=== PATIENT | female | born 1970 | race Caucasian/White ===

== ENCOUNTER → 2016-06-01 | Outpatient (CLI) | payer BC ==
[2016-06-01 13:19] LABS: CH 33.7; HCT 41.4 % (34.0-46.0); HDW 2.17; HGB 13.2 gm/dL (11.4-16.0); MCH 32.8 pg (25.0-35.0); MCHC 31.9 g/dL (31.0-37.0); MCV 102.8 fL (80.0-100.0); Macrocytosis Slight; Mean Platelet Volume 7.4; RBC 4.03 m/uL (3.80-5.40); WBC 9.3 k/uL (3.8-10.6)
[2016-06-01 13:31] LABS: Potassium 4.4 mmol/L (3.5-5.1)
== END | disposition home or self-care (01) ==
LOC: LABWHC1 12:35
PROVIDERS: ATTEND Orthopaedic Surgery
DX: Z01.812 Encounter for preprocedural laboratory examination (principal); M75.41 Impingement syndrome of right shoulder
CPT/HCPCS: 80051; 85027

== ENCOUNTER 2016-06-07 07:52 | Day surgery (SDC) | payer BC ==
[2016-06-02 16:55] VITALS: BMI 19.1
--- NOTE | 2016-06-06 15:07 | HP ---
DATE OF ADMISSION: 06/07/2016 Magnolia Segura is a 46-year-old patient seen with progressive right shoulder pain. After having treatment options discussed, she elected to proceed with right shoulder arthroscopy. Consent was obtained. Past medical history is noncontributory. Past surgical history is breast augmentation, tubal ligation, cholecystectomy. Daily medications are: 1. Ambien. 2. Aleve. 3. Gwhi-dxb-eslgequ vitamins. ALLERGIES: None reported. SOCIAL HISTORY: Currently smokes cigarettes. Physical evaluation of right shoulder: Flexion 150 degrees, abduction 140 degrees, external rotation is 40 degrees with some weakness. There is tenderness along the anterolateral acromion and rotator cuff insertion. Impingement positive at 90 degrees. Distal neurovascular exam is intact. Radiographs of the right shoulder revealed a type 2 anterior acromion, cystic changes of the tuberosity. An MRI of her shoulder revealed rotator cuff tendon tear. IMPRESSION: Right shoulder impingement with rotator cuff tendon tear. PLAN: Right shoulder arthroscopy with subacromial decompression, probable arthroscopic rotator cuff repair, and debridement.
[~2016-06-07 07:52] MED LIST: DEXAMETHASONE SOD PHOSPHATE 10 MG/ML 1 ML VIAL IV ONE; HYDROmorphone 1 MG/ML 1 ML SYRINGE IVP PRN; LACTATED RINGERS 1,000 ML IV SCH; MIDAZOLAM 2 MG/2 ML VIAL IV PRN; ONDANSETRON 4 MG/2 ML VIAL IVP ONE; ceFAZolin 1,000 MG in DEXTROSE/WATER 1 50ML.BAG IVPB ONE
[2016-06-07] MEDS ORDERED: LIDOCAINE 1% 20 ML VIAL (10MG/ML) FOR IV START INTRADERMA ONE (08:30)
[2016-06-07] MEDS ORDERED: fentaNYL (PF) 50 MCG/ML 2 ML AMP IV ONE (09:15)
--- NOTE | 2016-06-07 09:33 | P.ONQ ---
Anesthesiology Proc Note - PNB - Peripheral Nerve Block Performed Right Interscalene Single Indication: Acute Post-Operative Pain, Analgesia Specifically requested for management of pain by DrBrittany: Moises Perry Sedation Type: Sedate with meaningful contact maintained Preparation: Sterile Prep Position: Supine Catheter: None Needle Types: Other (see comment) (stimuplex) Needle Size: 50mm (2") Needle Gauge: Other (see comment) (22) Technique: Ultrasound Injectate: Other (see comment) (10 cc 0.5%Rop, 10cc 2% Lido) Adjunct: Epinephrine (see comment for dilution ratio) (1:200,000) Blood Aspirated: No Pain Paresthesia on Injection Noted: No Resistance on Injection: Normal Events: Uneventful and Well Tolerated
[2016-06-07] MEDS ORDERED: ROPIVACAINE 5 MG/ML 30 ML VIAL ONE (09:39)
[2016-06-07] MEDS ORDERED: PROPOFOL 10 MG/ML 20 ML VIAL IV ONE (09:39)
[2016-06-07] MEDS ORDERED: SUCCINYLCHOLINE CHLORIDE 100 MG/5 ML SYR IV ONE (09:39)
[2016-06-07] MEDS ORDERED: LIDOCAINE 2%-EPI 1:100,000 20 ML VIAL ONE (09:39)
[2016-06-07] MEDS ORDERED: LIDOCAINE 1% INJ 10MG/ML (20 ML MDV) ONE (09:39)
[2016-06-07] MEDS ORDERED: fentaNYL (PF) 50 MCG/ML 2 ML AMP ONE (09:39)
[2016-06-07] MEDS ORDERED: MIDAZOLAM 2 MG/2 ML VIAL ONE (09:39)
[2016-06-07] MEDS ORDERED: LACTATED RINGERS 1,000 ML IV ONE (10:13)
[2016-06-07 11:13] VITALS: TEMP 97
--- NOTE | 2016-06-07 11:18 | P.OP ---
Date of Procedure: 06/07/16 Preoperative Diagnosis: Right shoulder impingement Postoperative Diagnosis: 1. Right shoulder rotator cuff tear 2. Right shoulder impingement 3. Right shoulder partial biceps tendon tear Procedure(s) Performed: 1. Right shoulder arthroscopic rotator cuff repair 2. Right shoulder arthroscopic subacromial decompression 3. Right shoulder arthroscopic biceps tenotomy Implants: 1-valeris peek anchor Anesthesia: GETA, regional (Interscalene block) Surgeon: Moises Perry Director Of Recruiting #1: Robin Richter Estimated Blood Loss (ml): 10 Pathology: none sent Condition: stable Disposition: PACU Indications for Procedure: 46-year-old patient seen with progressive right shoulder pain. After having treatment options discussed, she elected to proceed with right shoulder arthroscopy. Operative Findings: See description of procedure Description of Procedure: Patient underwent a shoulder block by department of anesthesia. The patient was then taken to the operative suite. The patient underwent a general anesthetic by the department of anesthesia. The patient was placed into a lateral position and secured. There was appropriate padding of the bony prominence. Right shoulder was then prepped and draped in normal sterile orthopedic fashion. We placed the extremity in 10 pounds of longitudinal traction. A posterior incision was now made for a posterior working portal site. The trocar and cannula were inserted into the glenohumeral joint. Arthroscopy was initiated. Spinal needle was now inserted anteriorly, to ascertain the anterior working portal site. An incision was now made in that area, a trocar was inserted followed by a probe. There was some partial tearing long head biceps tendon with hyperemia. Glenohumeral joint was otherwise unremarkable. The labrum was intact. There was no chondromalacia. There were no loose bodies. An arthroscopic biceps tenotomy was performed. The labrum superiorly was probed and found to be stable. The instruments were now removed from glenohumeral joint. Utilizing the posterior working portal site, the trocar and cannula were inserted into the subacromial space. Arthroscopy initiated. I made an incision 2 fingerbreadths lateral to the acromion. I introduced my trocar followed by my ArthroCare ablator. I now began ablating thick subacromial bursal tissue, which exposed the undersurface of the anterior acromion. This was diminished subacromial space. There was a very prominent anterior acromion. A motorized bur was introduced and a subacromial decompression was performed. I also excised some osteophytes off the inferior aspect of the distal clavicle. The acromioclavicular joint was visualized with mild arthritis. I did not think enough to warrant Anthony procedure. I turned my attention to the rotator cuff tendon. There was some partial tearing along the distal supraspinatus anteriorly. I debrided that down to stable tissue. There was a perforation. I now debrided that area getting down to stable rotator cuff tendon tissue. There was about a 1-1.5 cm defect. It was easily mobile over the footprint. I abraded the footprint with a motorized bur. I then passed 2 everted mattress sutures through good bites of rotator cuff tendon. I punched a hole lateral for repair. I introduced one 5.5 peek anchor compressing the tendon along the footprint very nicely. The residual suture limbs were clipped. The repair was probed and found to be stable. I injected 1 mL of Allogen into the footprint repair site. Instruments now removed from the portal sites. All portal sites were approximated with nylon suture. Sterile dressings were applied followed by a shoulder immobilizer. Art CHOWDHURY assisted with the procedure. The patient was awakened, transferred to a bed, and taken to recovery in stable condition.
[2016-06-07 13:08] VITALS: RESP 18
[2016-06-07 13:14] VITALS: BP 97/62; PULSE 75
== END 2016-06-07 14:06 | disposition home or self-care (01) ==
LOC: OR 07:52
PROVIDERS: ATTEND Orthopaedic Surgery
DX: M75.101 Unspecified rotator cuff tear or rupture of right shoulder, not specified as traumatic (principal); M75.41 Impingement syndrome of right shoulder; S46.111A Strain of muscle, fascia and tendon of long head of biceps, right arm, initial encounter; X58.XXXA Exposure to other specified factors, initial encounter; F17.210 Nicotine dependence, cigarettes, uncomplicated; M79.7 Fibromyalgia; Z79.82 Long term (current) use of aspirin; Z79.899 Other long term (current) drug therapy
CPT/HCPCS: 81025; 64415; 29826; 29827; C1713; C1765; J2250; J1100; J2405; J2001; J3010; J0690; J2795; J0330; J2704

== ENCOUNTER → 2016-07-21 | Outpatient (CLI) | payer BC ==
[2016-07-21 14:19] LABS: ALT 28 U/L (9-52); AST 25 U/L (14-36); Alkaline Phosphatase 64 U/L (38-126); Anion Gap 10 mmol/L; Blood Urea Nitrogen 9 mg/dL (7-17); C Reactive Protein <5.0 mg/L (<10.0); Carbon Dioxide 27 mmol/L (22-30); Chloride 103 mmol/L (98-107); Cholesterol 212 mg/dL (<200); Creatine Kinase 92 U/L (30-135); Glucose 102 mg/dL (74-99); HDL Cholesterol 77 mg/dL (40-60); Iron 89 ug/dL (37-170); Non-African American GFR(MDRD) >60 (>60 ml/min/1.73 sqM); Potassium 4.3 mmol/L (3.5-5.1); Sodium 140 mmol/L (137-145); Total Bilirubin 0.4 mg/dL (0.2-1.3); Total Protein 7.3 g/dL (6.3-8.2); Triglycerides 117 mg/dL (<150); Uric Acid 3.7 mg/dL (3.7-7.4)
[2016-07-21 14:26] LABS: % Iron Saturation 28.6 % (20-50); Total Iron Binding Capacity 311 ug/dL (265-497)
[2016-07-21 15:05] LABS: Vitamin B12 466 pg/mL (239-931)
[2016-07-24 07:41] LABS: ANA w/Reflex to Titer POSITIVE (NEGATIVE)
[2016-07-24 15:29] LABS: Mis test requested (Blood) CENTROMERE B AB
== END | disposition home or self-care (01) ==
LOC: LABWHC1 12:55
PROVIDERS: ATTEND Family Medicine
DX: M34.1 CR(E)ST syndrome (principal); F51.01 Primary insomnia; R53.82 Chronic fatigue, unspecified; Z13.220 Encounter for screening for lipoid disorders
CPT/HCPCS: 36415; 80053; 80061; 82306; 82550; 82607; 83540; 83550; 83970; 84439; 84443; 84550; 85652; 86038; 86039; 86140; 86225; 86256

== ENCOUNTER → 2016-11-27 | Outpatient (CLI) | payer BC ==
--- NOTE | 2016-11-27 19:37 | MR ---
EXAMINATION TYPE: MR cervical spine wo con DATE OF EXAM: 11/27/2016 COMPARISON: NONE HISTORY: Neck pain, headaches, numbness in both hands TECHNIQUE: Multiplanar, multisequence images of the cervical spine were acquired. C2-C3: No evidence for degenerative disc disease. No disc bulge/herniation or protrusion. No Canal stenosis. Foramina are patent bilaterally. C3-C4: Mild to moderate degenerative disc disease with mild uncovertebral joint hypertrophy. No canal stenosis or disc herniation. C4-C5: Mild to moderate degenerative disc disease with bilateral uncovertebral joint hypertrophy and mild bilateral foraminal encroachment. No disc herniation or canal stenosis. C5-C6: Moderate degenerative disc disease with bilateral uncovertebral joint hypertrophy. No canal st enosis or focal herniation mild bilateral foraminal encroachment greater on the left. Mild broad-base d disc bulging greater paracentrally to the left. C6-C7: Moderate degenerative disc disease with bilateral mild uncovertebral joint hypertrophy. No can al stenosis, disc herniation or foraminal encroachment. C7-T1: No evidence for degenerative disc disease. No disc bulge/herniation or protrusion. No Canal stenosis. Foramina are patent bilaterally. Cervical segments are intact. There is normal alignment. Cervical spinal cord is of normal signal. Craniovertebral junction relationships are within normal limits. IMPRESSION: Bilateral mild to moderate degenerative disc disease and uncovertebral joint hypertrophy result in mu ltilevel mild foraminal encroachment. No discrete herniation or canal stenosis at any of the visualiz ed levels. Disc bulging C5-C6 greater paracentrally to the left but no evidence of canal stenosis
== END | disposition home or self-care (01) ==
LOC: RADMRIMAIN 18:46
PROVIDERS: ATTEND Internal Medicine Rheumatology
DX: M50.11 Cervical disc disorder with radiculopathy, high cervical region (principal); M47.22 Other spondylosis with radiculopathy, cervical region
CPT/HCPCS: 72141

== ENCOUNTER → 2016-12-14 | Outpatient (CLI) | payer BC ==
--- NOTE | 2016-12-14 21:15 | MR ---
EXAMINATION TYPE: MR shoulder RT wo con DATE OF EXAM: 12/14/2016 COMPARISON: Prior MRI right shoulder March 28, 2016. Recent outside shoulder x-ray November 02, 2016. HISTORY: Rt shoulder pain per order. Persistent pain with difficulty raising overhead since surgery M arch 2016. TECHNIQUE: Multiplanar, multisequence imaging of the right shoulder is performed without contrast. FINDINGS: Rotator Cuff: Artifact from rotator cuff tendon repair surgery is present. There is significant incre ased signal along course of distal supraspinatus tendon with areas of focal tear is seen best on para sagittal images 8 and 9. No full-thickness retracted tear is identified. Infraspinatus tendon appears within normal limits. Subscapularis tendon is intact. Rotator cuff muscle bulk is preserved. Acromioclavicular Joint: Acromioclavicular joint is satisfactory. Distal acromion morphology is unrem arkable. Glenohumeral Joint: No significant spurring is present. There is persistent mild joint space loss. No significant effusion is seen. Labrum: The labrum has blunted morphology and increased signal suggestive of tear though is difficult to distinctly evaluate on nonarthrogram study. Biceps Tendon: The long head of biceps is in normal location within bicipital groove. There appears t o be increased signal intra-articular portion on axial image 18 confirmed on paracoronal image 6. The re is definitive change from prior MRI noted however. Bone marrow signal: No focal abnormal marrow signal is appreciated. Other: No additional significant abnormality is appreciated. IMPRESSION: 1. Interval rotator cuff surgery with moderate to severe tendinosis of distal supraspinatus tendon an d some partial tearing near humeral head attachment now identified. No full-thickness Full-thickness retracted tear is seen. 2. Superior labrum is now frayed with intermediate signal suggesting partial surgical resection or in terval developed tear. 3. New Intrasubstance tear intra-articular portion long head of biceps tendon.
== END | disposition home or self-care (01) ==
LOC: RADMRIMAIN 20:01
PROVIDERS: ATTEND Orthopaedic Surgery
DX: S46.011A Strain of muscle(s) and tendon(s) of the rotator cuff of right shoulder, initial encounter (principal); M75.81 Other shoulder lesions, right shoulder

== ENCOUNTER → 2017-06-26 | Outpatient (CLI) | payer BC ==
--- NOTE | 2017-06-26 23:12 | MR ---
EXAMINATION TYPE: MR lumbar spine wo con DATE OF EXAM: 06/26/2017 COMPARISON: None. HISTORY: Back pain with numbness and tingling x1 year per patient. Lumbago per order. TECHNIQUE: Multiplanar, multisequence imaging of the lumbar spine is performed without IV contrast. FINDINGS: Survey images show levoconvex scoliosis centered in the upper lumbar spine. Sagittal images of the lumbar spine show vertebral body heights and alignment to appear satisfactory. There is disc desiccation at L1-L2, L4-L5, and L5-S1 levels. There is mild disc space narrowing L1-L2 level. Small posterior disc herniations are seen L1-L2 and L4-L5 levels on sagittal images effacing the anterior t hecal sac. The conus medullaris is normal in position and signal ending at T12-L1 disc space level. The bone marrow signal intensity is within normal limits. No significant spurring is seen. Axial images show the T12-L1 level to appear within normal limits. Axial images at L1-L2 level shows central disc protrusion mildly effacing the anterior thecal sac on axial image 24. Bilateral neural foramina are patent. Axial images at L2-L3 and L3-L4 levels are felt within normal limits. Axial images at L4-L5 level show mild broad-based central disc protrusion and mild facet degenerative changes bilaterally. There is mild effacement of the anterior thecal sac. Bilateral neural foramina are patent. Axial images at L5-S1 levels show mild to moderate facet degenerative changes bilaterally. There is n o significant disc herniation or spinal canal effacement. Bilateral neural foramina are patent. No suspicious retroperitoneal findings are seen. IMPRESSION: Multilevel degenerative changes as detailed above. No significant disc herniation is seen to account for patient's radiculopathy type symptoms however.
--- NOTE | 2017-06-26 23:18 | MR ---
EXAMINATION TYPE: MR brain wo/w con DATE OF EXAM: 06/26/2017 COMPARISON: NONE HISTORY: 47-year-old female Headaches, Breast CA 2000. TECHNIQUE: Multiplanar, multisequence images of the brain and brainstem were acquired before and aft er administration of 7.5 mL IV Gadavist. Diffusion weighted imaging is performed. FINDINGS: No evidence for acute infarction, hemorrhage, mass, mass effect, midline shift, herniation, effacemen t of basal cisterns, or extra-axial fluid collection. The ventricles and sulci are age-appropriate. Major intracranial flow voids are intact. T2/FLAIR weighted sequences show trace burden of bright white matter change in the subcortical region s of the bifrontal lobes, 2 foci in the left and one focus on the right. Midline structures demonstrate normal morphology. The craniocervical junction is normal. Post contrast images demonstrate no evidence of pathologic enhancement. Dural venous sinuses are pat ent. There is mild mucosal thickening within the ethmoid air cells. Mild rightward nasal septal deviation. Globes are intact. IMPRESSION: 1. No acute intracranial abnormality seen. 2. Approximately 3 punctate foci of bright white matter change in the bifrontal lobes, nonspecific, p robably minimal early changes of chronic small vessel ischemic disease. Chronic migraines are an alte rnative consideration in the correct clinical setting.
== END | disposition home or self-care (01) ==
LOC: RADMRIMAIN 19:44
PROVIDERS: ATTEND Psychiatry & Neurology Pain Medicine
DX: M48.061 Spinal stenosis, lumbar region without neurogenic claudication (principal); M51.26 Other intervertebral disc displacement, lumbar region; M47.817 Spondylosis without myelopathy or radiculopathy, lumbosacral region; R51 Headache
CPT/HCPCS: 70553; 72148; A9581

== ENCOUNTER → 2018-04-01 | Outpatient (CLI) | payer BC ==
--- NOTE | 2018-04-01 14:20 | MR ---
EXAMINATION TYPE: MR brain/cspine wo DATE OF EXAM: 04/01/2018 COMPARISON: 06/26/2017 HISTORY: Neck and Shoulder Pain, Headaches, Numbness in Both Hands CONTRAST: Performed utilizing 0 mL intravenous Gadavist gadolinium contrast. TECHNIQUE: Multiplanar, multiecho imaging on a 3.0 Marie magnet is performed through the brain. Stud y is performed within 24 hours of arrival to the hospital. The craniovertebral junction is normal. The pituitary is normal. Diffusion-weighted imaging is performed. No abnormal hyperintensity is present to suggest an acute i ntracranial infarct or acute ischemic change. Suspicious white matter changes portion of the patient age are not evident. There are couple of punct ate deep white matter changes in the left centrum semiovale near the vertex and in the right jenkins r adiata. These were present previously. Ventricles and sulci are appropriate for the patient age. IMPRESSIONS: 1. No acute intracranial process. EXAMINATION TYPE: MR brain/cspine wo DATE OF EXAM: 04/01/2018 COMPARISON: 11/27/2016 HISTORY: Neck and Shoulder Pain, Headaches, Numbness in Both Hands CONTRAST: Performed utilizing mL intravenous gadolinium contrast. TECHNIQUE: Multiplanar multiecho imaging on a 3.0 Marie magnet is performed through the cervical spin e. FINDINGS: The craniovertebral junction is normal. Vertebral body alignment is normal. C7-T1: No focal disc herniation or significant disc bulge is evident. No spinal canal stenosis or n eural foraminal stenosis is present. C6-7: No focal disc herniation or significant disc bulge is evident. No spinal canal stenosis or batsheva ral foraminal stenosis is present. C5-6: Minimal disc bulge may be present with anterior thecal sac contact. No spinal canal stenosis or neural foraminal stenosis present. Mild disc space narrowing may be present. C4-5: Minimal disc bulge is present with anterior thecal sac contact. No cord contact is evident. No spinal canal stenosis or neural foraminal stenosis is present.. C3-4: No focal disc herniation or significant disc bulge is evident. No spinal canal stenosis or batsheva ral foraminal stenosis is present. C2-3: No focal disc herniation or significant disc bulge is evident. No spinal canal stenosis or batsheva ral foraminal stenosis is present. IMPRESSIONS: 1. Mild disc bulging C4-5 C5-6 with anterior thecal sac contact. No significant interval changes evid ent. No stenosis is present.
== END | disposition home or self-care (01) ==
LOC: RADMRIMAIN 10:52
PROVIDERS: ATTEND Psychiatry & Neurology Neurology
DX: M50.221 Other cervical disc displacement at C4-C5 level (principal); R51 Headache
CPT/HCPCS: 70551; 72141

== ENCOUNTER → 2018-09-09 | Outpatient (CLI) | payer BC ==
--- NOTE | 2018-09-11 15:44 | MR ---
EXAMINATION TYPE: MR knee LT wo con DATE OF EXAM: 09/09/2018 COMPARISON: None HISTORY: Lt knee pain and swelling x6 months, xrays at [facility] TECHNIQUE: Multiplanar, multisequence imaging of the left knee is performed without IV contrast. FINDINGS: MEDIAL MENISCUS: There is a small oblique tear of the posterior horn of the medial meniscus contiguou s with the inferior articular surface. Anterior horn appears intact as does the meniscal body. LATERAL MENISCUS: There is a discoid lateral meniscus and blunting of the free edge of the posterior horn of the lateral meniscus compatible with a very small radial folds. There is also increased signa l of the posterior root with fraying but no discrete discontinuity to indicate full-thickness tear of the posterior root. CRUCIATE LIGAMENTS: The anterior and posterior cruciate ligaments are intact. However there is increa sed signal of the anterior cruciate ligament compatible low-grade sprain. COLLATERAL LIGAMENTS: The medial collateral ligament and lateral collateral ligament complex are inta ct and unremarkable. EXTENSOR MECHANISM: Visualized quadriceps and patellar tendons are intact. There is subtle increased signal is seen of the insertional fibers of the patellar tendon with thickening and overlying subcuta neous edema. EFFUSION: No significant suprapatellar joint effusion. POPLITEAL CYST: Small popliteal cyst is present. TRICOMPARTMENT SPACES: Joint spaces are maintained. CARTILAGE: Patellofemoral cartilage is maintained without full-thickness or partial-thickness tear ho wever there is some trochlear cartilage signal heterogeneity. There is generalized thinning of the me dial compartment cartilage without full-thickness defect and partial-thickness defect of the anterior weightbearing surface of the lateral femoral condyle measuring 7.4 mm. BONE MARROW SIGNAL: No focal abnormal marrow signal is appreciated. OTHER: There is high signal of the insertional fibers of the semimembranosus. IMPRESSION: 1. Small radial tear of the posterior horn of the free edge of the discoid lateral meniscus and frayi ng of the posterior root without clear discontinuity. 2. Subtle nondisplaced oblique tear of the posterior horn of the medial meniscus. 3. Mild tricompartmental chondrosis with partial-thickness cartilaginous defect of the lateral compar tment measuring 7.4 mm. 4. Minimal insertional fiber patellar tendinosis with overlying subcutaneous edema.
== END | disposition home or self-care (01) ==
LOC: RADMRIMAIN 18:15
PROVIDERS: ATTEND Orthopaedic Surgery
DX: S83.282A Other tear of lateral meniscus, current injury, left knee, initial encounter (principal); S83.242A Other tear of medial meniscus, current injury, left knee, initial encounter; M67.864 Other specified disorders of tendon, left knee; M94.8X6 Other specified disorders of cartilage, lower leg

== ENCOUNTER → 2022-09-20 | Outpatient (CLI) | payer BC ==
--- NOTE | 2022-09-20 14:05 | USB ---
Reason for Exam: Follow-up at short interval from prior study. Patient History: Menarche at age 13. First Full-Term at age 21. Postmenopausal. Patient has history of breast feeding. Patient used Hormonal Contraceptives for 1 year. 03/07/2022, Bilateral Implant Removal. 1999, Implant on the left side. 1999, Implant on the right side. Risk Values: Fatemeh 5 year model risk: 0.9%. NCI Lifetime model risk: 6.9%. Technique: Method: Whole Breast Handheld. Patient Position: Supine. Prior Study Comparison: 10/27/2014 Bilateral Screening Mammogram, [facility]. Findings: The whole breast of both breasts, the axilla of both breasts and the retroareolar of both breasts were scanned. Electronically signed and approved by: Frank Hill D.O. Radiologis
--- NOTE | 2022-09-21 08:39 | MM ---
Reason for Exam: Clinical finding. Last mammogram was performed 4 year(s) and 7 month(s) ago. Indicated Problems: Pain of both sides (Global) for 6 Month(s). Patient History: Menarche at age 13. First Full-Term at age 21. Postmenopausal. Patient has history of breast feeding. Patient used Hormonal Contraceptives for 1 year. 03/07/2022, Bilateral Implant Removal. 1999, Implant on the left side. 1999, Implant on the right side. Risk Values: Fatemeh 5 year model risk: 0.9%. NCI Lifetime model risk: 6.9%. Prior Study Comparison: 10/27/2014 Bilateral Screening Mammogram, [facility]. 02/12/2018 Bilateral MG screening mammo implant/CAD, [facility]. Tissue Density: The breast tissue is heterogeneously dense. This may lower the sensitivity of mammography. Findings: Analyzed By CAD. Pattern appears symmetrical. There is some distortion in the subareolar breast which may be postsurgical implant. No suspicious groups of microcalcifications, spiculated or lobular masses, architectural distortion or other secondary signs of malignancy are mammographically apparent. Overall Assessment: Incomplete: need additional imaging evaluation, BI-RAD 0 Management: Diagnostic Breast Ultrasound of both breasts. Electronically signed and approved by: Frank Hill D.O. Radiologis
== END | disposition home or self-care (01) ==
LOC: RADMAMWWP 12:49
PROVIDERS: ATTEND Family Medicine
DX: N64.4 Mastodynia (principal); Z78.0 Asymptomatic menopausal state
CPT/HCPCS: 77062; 77066

== ENCOUNTER → 2023-03-09 | Outpatient (CLI) | payer BC ==
[2023-03-10 02:42] LABS: HCT 40.7 % (37.2-46.3); HGB 13.1 g/dL (12.0-15.0); Lymphocytes # (A) 4.31 X 10*3/uL (0.90-5.00); Lymphocytes % (A) 41.5 %; MCH 32.8 pg (27.0-32.0); MCHC 32.2 g/dL (32.0-37.0); Mean Platelet Volume 9.9 FL (9.5-12.2); Monocytes # (A) 0.47 X 10*3/uL (0.20-1.00); Monocytes % (A) 4.5 %; NRBC Per 100 WBC 0 X 10*3/uL (0.00-0.01); Neutrophils # (A) 5.38 X 10*3/uL (1.80-7.70); Neutrophils % (A) 51.7 %; Platelet Count 323 X 10*3/uL (140-440); RBC 3.99 X 10*6/uL (4.10-5.20); RDW 13.1 % (11.5-14.5); WBC 10.39 X 10*3/uL (4.50-10.00)
[2023-03-10 02:57] LABS: BUN/Creat Ratio 16.25 Ratio (12.00-20.00); Calcium 10.3 mg/dL (8.7-10.3); Carbon Dioxide 28.2 mmol/L (21.6-31.8); Chloride 100 mmol/L (96-109); Glucose 86 mg/dL (70-110); Potassium 4.7 mmol/L (3.5-5.5); Sodium 140 mmol/L (135-145)
== END | disposition home or self-care (01) ==
LOC: LABPAT 15:42
PROVIDERS: ATTEND Orthopaedic Surgery Hand Surgery
DX: Z01.812 Encounter for preprocedural laboratory examination (principal); R22.31 Localized swelling, mass and lump, right upper limb
CPT/HCPCS: 80048; 85025

== ENCOUNTER 2023-03-14 10:11 | Day surgery (SDC) | payer BC ==
--- NOTE | 2023-03-13 10:36 | P.HPOR ---
History of Present Illness H&P Date: 03/13/23 Subjective: This is a 52 year old female that presents today for initial evaluation regarding a several year history of a increasingly painful soft tissue mass on the dorsal aspect of the right thumb. She has pain when she bumps it things and when she is writing or holding a pen. She denies any injury or inciting event and has had it drained in the past but it has come back. Physical Examination: RUE: AIN/PIN/Radial/Ulnar/Median motor intact. Radial/Ulnar/Median SILT. 2+/4 Radial/Ulnar pulses palpated. 5/5 APB, 5/5 FDI. Negative Finkelsteins, negative CMC grind, negative Durkan's compression. Round cyst present over dorsal aspect of thumb proximal phalanx. Imaging: X-Rays of the right hand 3V demonstrate no abnormality. X-Rays of the right thumb 2V demonstrate no acute arthritic process. Impression: 1.) Right thumb soft tissue mass Plan: Diagnosis and treatment options were discussed with the patient. We discussed continued observation vs soft tissue mass excision. She would like to proceed with dorsal thumb soft tissue mass excision. Risks and benefits of surgery including bleeding, infection, damage to surrounding tissue, need for further surgery, recurrence, residual numbness were discussed and the patient wished to go forward with surgery. The patient was agreeable with this plan -Sherif Lozoya DO Orthopedic Hand/Upper Extremity Surgeon Past Medical History Past Medical History: CVA/TIA, Fibromyalgia, Musculoskeletal Disorder, Skin Disorder Additional Past Medical History / Comment(s): TIA 2003. PALPITATIONS OCC. SCLERODERMA, Reynauld's syndrome, cholesterol "bounces back and forth" History of Any Multi-Drug Resistant Organisms: None Reported Past Surgical History: Breast Surgery, Cholecystectomy, Orthopedic Surgery, Tubal Ligation Additional Past Surgical History / Comment(s): BREAST AUGMENTATION, breast explant bilaterally, R shoulder scope, torn meniscus repair L knee. Past Anesthesia/Blood Transfusion Reactions: No Reported Reaction Smoking Status: Current every day smoker - Past Family History Mother Family Medical History: Hyperlipidemia, Thyroid Disorder Father Family Medical History: Coronary Artery Disease (CAD), Myocardial Infarction (MS), Skin Disorder Additional Family Medical History / Comment(s): Psoriasis, MS/CABG Medications and Allergies Home Medications Medication Instructions Recorded Confirmed Type Aspirin [Adult Low Dose Aspirin EC] 81 mg PO QAM 06/02/16 03/12/23 History Zolpidem Tartrate [Ambien Cr] 12.5 mg PO HS 06/02/16 03/12/23 History Ascorbic Acid/Elderberry Fruit 1 tab PO QAM 03/12/23 03/12/23 History [Elderberry-Vit C 50-100 mg Chw] Nf-Vitamin B 12 1 tab PO QAM 03/12/23 History Nf-Vitamin D3 1 tab PO QAM 03/12/23 History Nf-Vitamin E 1 tab PO QAM 03/12/23 History methIMAzole [Tapazole] 7.5 mg PO QAM 03/12/23 03/12/23 History Allergies Allergy/AdvReac Type Severity Reaction Status Date / Time No Known Allergies Allergy Verified 03/12/23 10:12 Physical Examination Osteopathic Statement: *. No significant issues noted on an osteopathic structural exam other than those noted in the History and Physical/Consult.
[~2023-03-14 10:11] MED LIST changes: -DEXAMETHASONE SOD PHOSPHATE 10 MG/ML 1 ML VIAL IV ONE; -HYDROmorphone 1 MG/ML 1 ML SYRINGE IVP PRN; +LIDOCAINE 1% (10MG/ML) FOR IV START INTRADERMA PRN; -MIDAZOLAM 2 MG/2 ML VIAL IV PRN; -ONDANSETRON 4 MG/2 ML VIAL IVP ONE; -ceFAZolin 1,000 MG in DEXTROSE/WATER 1 50ML.BAG IVPB ONE
[2023-03-14 11:04] VITALS: TEMP 98.1
[2023-03-14] MEDS ORDERED: LIDOCAINE 1% (10MG/ML) FOR IV START INTRADERMA ONE (11:07)
[2023-03-14] MEDS ORDERED: PHENYLEPHRINE-0.9% NACL SYG 1,000 MCG/10 ML SYRINGE ONE (12:28)
[2023-03-14] MEDS ORDERED: LIDOCAINE 1% INJ 10MG/ML (20 ML MDV) ONE (12:28)
[2023-03-14] MEDS ORDERED: fentaNYL (PF) 50 MCG/ML 2 ML AMP ONE (12:28)
[2023-03-14] MEDS ORDERED: MIDAZOLAM 2 MG/2 ML VIAL ONE (12:28)
[2023-03-14] MEDS ORDERED: PROPOFOL 10 MG/ML 20 ML VIAL IV ONE (12:28)
[2023-03-14] MEDS ORDERED: LIDOCAINE 1% INJ 10MG/ML (20 ML MDV) SQ ONE ×2 (12:30)
[2023-03-14] MEDS ORDERED: BUPIVACAINE (PF) 0.5% 30 ML VIAL SQ ONE ×2 (12:30)
--- NOTE | 2023-03-14 12:59 | P.OP ---
Date of Procedure: 03/14/23 Preoperative Diagnosis: Right thumb soft tissue mass Postoperative Diagnosis: Right thumb soft tissue mass Procedure(s) Performed: 1.) Right thumb IP joint arthrotomy 2.) Right thumb soft tissue mass excision 4x4mm 3.) Right thumb proximal phalanx dorsal osteophyte excision Anesthesia: MAC Surgeon: Sherif Lozoya [address] Stenographer #1: Jeff Crews Estimated Blood Loss (ml): 0 Pathology: other (Right thumb soft tissue mass) Condition: stable Disposition: PACU Description of Procedure: This is a 52 year old female with a painful right thumb soft tissue mass that has failed conservative treatment and presents today for a right thumb soft tissue mass excision. Risks and benefits of surgery were discussed with the patient including bleeding, damage to surrounding tissue, infection, need for further surgery as well as risks of anesthesia including pulmonary embolism and even and the patient wished to proceed with surgical intervention. The patient was seen in the pre-operative area by myself. Consent and H&P were completed and updated. The correct extremity was marked in the pre-operative area by myself and all other questions were answered. Operative Narrative: The patient was brought to the operating room by the department of anesthesia. They remained on the portable stretcher and a rolling hand table was brought to the side of the operative extremity. Pre-operative time out was performed indicating the correct patient, procedure and laterality. All in the room agreed. Pre-operative antibiotics were given prior to skin incision. The patient was then drifted off to sleep by the department of anesthesia. Digital block was performed with 7cc's of 0.5% Lidocaine and 1% lidocaine in a 50:50 mixture. A nonsterile tourniquet was then applied to the operative extremity and the right upper extremity was then prepped and draped in normal sterile fashion. The operative extremity was then exsanguinated with an esmarch bandage and the tourniquet was inflated to 250mmHg. 15 blade scalpel was utilized to make a longitudinal incision over the mass of right thumb overlying the proximal phalanx. Sharp dissection was taken down though subcutaneous tissues. Extensor tendon was identified and preserved. Blunt dissection was taken down through subcutaneous tissues and a clear colored mass was identified and sitting on top of the EPL tendon. The mass was carefully dissected off of the tendon and collected and sent to pathology. The mass stalk communicated with the IP joint of the distal phalanx and an arthrotomy was made into the IP joint. A small dorsal osteophyte was then identified on the radial boarder and this was excised with a rongeur. The wound and joint was irrigated. The wound was then closed with 4-0 nylon suture and a soft dressing was placed consisting of adaptic, 4x4s and loosely applied coban. Tourniquet was let down and the hand had immediate perfusion. The patient was then woken by the department of anesthesia and transferred to PACU in stable condition. Jeff CHOWDHURY was present for the case to assist in protection of neurovascular structures and other major portions of the case described above. Sherif Lozoya D.O. Orthopedic Hand/Upper Extremity Surgeon
[2023-03-14 14:08] VITALS: BP 106/71; PULSE 69; RESP 16
== END 2023-03-14 13:52 | disposition home or self-care (01) ==
LOC: OR 10:11
PROVIDERS: ATTEND Orthopaedic Surgery Hand Surgery
DX: R22.31 Localized swelling, mass and lump, right upper limb (principal); M34.9 Systemic sclerosis, unspecified; M79.7 Fibromyalgia; F17.200 Nicotine dependence, unspecified, uncomplicated; Z90.49 Acquired absence of other specified parts of digestive tract; Z86.73 Personal history of transient ischemic attack (TIA), and cerebral infarction without residual deficits
CPT/HCPCS: 26115; 88304; J2250; J0690; J2001; J3010; J2704; J2371; J0665

== ENCOUNTER → 2024-07-22 | Outpatient (CLI) | payer OTHER ==
--- NOTE | 2024-07-22 16:47 | CTL ---
EXAMINATION TYPE: CT Low Dose Lung DATE OF EXAM ORDERED: 07/22/2024 COMPARISON: None CLINICAL INDICATION: Female, 54 years old with history of Z12.2 SCREENING LUNG CA F17.210 CURRENT SMO KER; [facility], pt smokes 3-5 cigarettes/day x 3 years, smoker 20+ yrs, Lung cancer screening, History of S moking/tobacco use. TECHNIQUE: Low dose computed tomography scan was performed through the chest at 1 mm thick sections a nd reconstructed images in multiple planes at 1 mm and [address] DLP: [address] CTDI: 1.45 mGy Automated exposure control for dose reduction was used. CT DIAGNOSTIC QUALITY: Satisfactory EXAMINATION TYPE: CT Low Dose Lung DATE OF EXAM ORDERED: 07/22/2024 CLINICAL INDICATION: Female, 54 years old with history of Z12.2 SCREENING LUNG CA F17.210 CURRENT SMO KER, history of tobacco use, Lung cancer screening CT DLP: [address] CTDI: 1.45 mGy Automated exposure control for dose reduction was used. Comparison: None TECHNIQUE: Low dose computed tomography scan was performed through the chest at 1 mm thick sections a nd reconstructed images in multiple planes at 1 mm and [address] DIAGNOSTIC QUALITY: Satisfactory FINDINGS: There are a few sub-4 mm nodules bilaterally. There is no airspace consolidation. There is a single interstitial density in the right lower lobe po steriorly consistent with focal interstitial scarring or fibrosis.. There is no mediastinal, hilar or axillary adenopathy. There is no pleural effusion, pleural thickening or pneumothorax. No focal osseous lesions are seen. Limited scans the upper abdomen reveals no gross abnormality IMPRESSION: 1. Lung rads Category 2 benign.. Continue routine screening at yearly intervals. 2. No acute cardiopulmonary disease. [facility], , 07/22/2024 4:44 PM
== END | disposition home or self-care (01) ==
LOC: RADCTMAIN 16:11
PROVIDERS: ATTEND Family Medicine
DX: Z12.2 Encounter for screening for malignant neoplasm of respiratory organs (principal); F17.210 Nicotine dependence, cigarettes, uncomplicated
CPT/HCPCS: 71271